=== PATIENT | female | born 1965 | race Caucasian/White ===

== ENCOUNTER 2024-03-15 06:06 | Observation (INO) ==
--- NOTE | 2024-01-26 15:16 | PAT Medication Instructions ---
Medication Instructions Date of Service January 26, 2024 Home Medications Medication Instructions Recorded meloxicam 15 mg tablet 15 mg PO QAM #30 tabs 01/21/24 cholecalciferol (vitamin D3) 100 mcg (4,000 unit) capsule 100 mcg PO Q2D epinephrine 0.3 mg/0.3 mL injection, auto-injector 0.3 mg IM Q4H PRN Hives lisinopril 20 mg tablet 20 mg PO QAM loratadine 10 mg tablet 10 mg PO QAM omeprazole 20 mg tablet,delayed release 20 mg PO QAM meloxicam 15 mg tablet 15 mg PO QAM Continue as directed epinephrine 0.3 mg/0.3 mL injection, auto-injector 0.3 mg IM Q4H PRN Hives (if needed) ASK your surgeon for instructions meloxicam 15 mg tablet 15 mg PO QAM DO NOT take the morning of surgery cholecalciferol (vitamin D3) 100 mcg (4,000 unit) capsule 100 mcg PO Q2D lisinopril 20 mg tablet 20 mg PO QAM loratadine 10 mg tablet 10 mg PO QAM Take morning of surgery With a small sip of water, OTHERWISE NOTHING TO EAT OR DRINK AFTER MIDNIGHT: omeprazole 20 mg tablet,delayed release 20 mg PO QAM Other Notes If you have any questions please call us at [phone] or [phone] or [phone] or [phone]
--- NOTE | 2024-02-06 14:07 | Anesthesiology Consultation ---
Date of Service February 06, 2024 Assessment & Plan (1) Encounter for pre-operative examination: - Infectious disease screening: Per assessment on 02/06/24: No known recent infectious disease contacts or current infectious disease symptoms. - Outpatient joint assessment: Pt currently scheduled for inpatient pathway. If surgeon requests review for outpatient joint pathway, patient is an acceptable candidate for outpatient joint program from anesthesia standpoint pending surgeon's office assessment that patient is motivated, has good support and completes [facility] Joint Program preop requirements. Chart Review Chart Review: Acceptable Risk for Surgery and Patient seen in Pre Admission Testing Teaching & Discussion Pre-Anesthesia Teaching/Discussion Notes: Instructed NPO after midnight before surgery,except medications with 15 cc of water. Medication instructions provided according to the PAT guidelines. History Surgery Operation Date: 03/15/24 07:00 Proposed Procedures p Left Total Knee Arthroplasty - Tonio Beach, Height/Weight Height: 5 ft 2.5 in Weight: 97.7 kg Allergies Allergy/AdvReac Type Severity Reaction Status Date / Time bee pollen Allergy Severe Anaphylaxis Verified 01/19/24 10:44 flavoxate AdvReac Intermediate Hives Verified 01/19/24 10:44 Medications Home Medications Medication Instructions Recorded Confirmed Last Taken cholecalciferol (vitamin D3) 100 100 mcg PO Q2D 01/19/24 01/19/24 Unknown mcg (4,000 unit) capsule epinephrine 0.3 mg/0.3 mL 0.3 mg IM Q4H PRN Hives 01/19/24 01/19/24 Unknown injection, auto-injector lisinopril 20 mg tablet 20 mg PO QAM 01/19/24 01/19/24 Unknown loratadine 10 mg tablet 10 mg PO QAM 01/19/24 01/19/24 Unknown omeprazole 20 mg tablet,delayed 20 mg PO QAM 01/19/24 01/19/24 Unknown release meloxicam 15 mg tablet 15 mg PO QAM #30 tabs 01/21/24 Unknown Past Medical History Medical History Acid reflux History of HPV infection "Negative" on most recent pap test HTN (hypertension) Hx of migraines Obesity Osteoarthritis Sleep apnea CPAP (compliant) Thyroid goiter Subtotal thyroidectomy (Small remaining thyroid portion (done so that thyroid supplementation not required postoperatively per patient) Exercise / Class Metabolic Activity II 4-5 Yardwork/Stairs/Walk up hill (one FS: No CP, no SOB) Past Family History Family History Other No family history of adverse response to anesthesia Past Surgical History Surgical History H/O arthroscopy of left knee 03/04/2021-Dr. Beach History of appendectomy History of arthroscopy of left shoulder History of cholecystectomy History of colonoscopy History of colposcopy r/t vaginal wall abnormal areas (HPV/abnormal paps) History of thyroidectomy, subtotal Small remaining thyroid portion (done so that thyroid supplementation not required postoperatively per patient) S/P right knee arthroscopy x2 S/P CLAIRE-BSO r/t bilateral chasidy ovarian cysts Past Anesthesia History No Hx of Anesthesia Complications and No Family Hx of Anesthesia Complications History of PONV No Hx of PONV and No Hx of Motion Sickness Social History Smoking Status: Never smoker Do You Dip or Chew Tobacco: No Hx Alcohol Use: No Hx Substance Use: No substance use type: does not use Review of Systems Rare palpitations. Patient denies chest pain, shortness of breath, dyspnea on exertion, fever, chills, cough, wheezing. Physical Exam Vital Signs BP 138/82 P 75 TEMP 98.2 SP02 97%RA RESP 16 Physical Full cervical extension range of motion. Full TMJ range of motion. TMD 3 finger breaths Mallampati Score II Dentition: intact Lungs: clear throughout to auscultation Cardiac: regular rate and rhythm, no murmurs noted Spine: normal Carotid arteries: negative bruit Extremities: no LE edema Lab Results Anesthesia Preop Results Results Anesthesia Widget: WBC 5.82 K/ul (4.8-10.8) 02/06/24 Hgb 12.2 g/dl (12.0-16.0) 02/06/24 Hct 37.3 % (37.0-47.0) 02/06/24 Plt 197 K/uL (130-400) 02/06/24 Na 141 mmol/L (136-145) 02/06/24 K 3.6 mmol/L (3.5-5.1) 02/06/24 Cl 106 mmol/L (98-107) 02/06/24 CO2 29 mmol/L (21-32) 02/06/24 BUN 32 mg/dl (6-23) H 02/06/24 Creat 0.94 mg/dl (0.6-1.2) 02/06/24 Glucose Level 83 mg/dl (70-99(Fasting)) 02/06/24 PT 10.5 Seconds (9.0-12.0) 02/06/24 PTT 26 Seconds (21-31) 02/06/24 INR 1.0 (0.9-1.1) 02/06/24 Blood Type B Positive 02/06/24 Antibody Screen NEGATIVE 02/06/24 Testing Electrocardiogram Date: 02/06/24 Findings: + NSR @ (71) Chest X-Ray Date: 02/06/24 FINDINGS: The lungs are clear. Cardiac silhouette is normal in size. No pleural effusions. No pneumothorax. Prior cholecystectomy. IMPRESSION: No acute process.
--- NOTE | 2024-03-14 09:21 | History & Physical Report ---
Date of Service March 14, 2024 Assessment & Plan (1) Osteoarthritis of left knee: We will proceed with a left total knee arthroplasty. Postoperatively she will be started on aspirin for DVT prophylaxis and kept overnight in the hospital for postop medical management. She plans to go to outpatient physical therapy at [facility] upon discharge. History of Present Illness Chief Complaint: Osteoarthritis of the left knee. Primary Care Provider: Jessa Butterfield DO Sena is a pleasant 58-year-old female who was initially dealing with a work- related injury to her left knee. I did a left knee arthroscopy and it showed some grade 2 and almost grade 3 chondral changes of the distal medial femoral condyle. Unfortunately, she has not done well postoperatively. I have been treating her conservatively. I have been really trying to go slow with this. We have tried lot of injections. Unfortunately, she continues to have pain. Repeat x-rays have shown worsening medial compartmental arthritis. After failing extensive conservative treatment, she has elected proceed with a left total knee arthroplasty. Allergies Allergy/AdvReac Type Severity Reaction Status Date / Time bee pollen Allergy Severe Anaphylaxis Verified 01/19/24 10:44 flavoxate AdvReac Intermediate Hives Verified 01/19/24 10:44 Home Medications Medication Instructions Recorded Confirmed Type cholecalciferol (vitamin D3) 100 100 mcg PO Q2D 01/19/24 01/19/24 History mcg (4,000 unit) capsule epinephrine 0.3 mg/0.3 mL 0.3 mg IM Q4H PRN Hives 01/19/24 01/19/24 History injection, auto-injector lisinopril 20 mg tablet 20 mg PO QAM 01/19/24 01/19/24 History loratadine 10 mg tablet 10 mg PO QAM 01/19/24 01/19/24 History omeprazole 20 mg tablet,delayed 20 mg PO QAM 01/19/24 01/19/24 History release meloxicam 15 mg tablet 15 mg PO QAM #30 tabs 01/21/24 Rx Past Med/Surg History Problem List Encounter for pre-operative examination Patella-femoral syndrome Tear of lateral meniscus of left knee Medical History Osteoarthritis Obesity Acid reflux Hx of migraines HTN (hypertension) Sleep apnea CPAP (compliant) History of HPV infection "Negative" on most recent pap test Thyroid goiter Subtotal thyroidectomy (Small remaining thyroid portion (done so that thyroid supplementation not required postoperatively per patient) Surgical History History of arthroscopy of left shoulder H/O arthroscopy of left knee 03/04/2021-Dr. Beach History of colposcopy r/t vaginal wall abnormal areas (HPV/abnormal paps) History of colonoscopy S/P CLAIRE-BSO r/t bilateral chasidy ovarian cysts History of cholecystectomy History of thyroidectomy, subtotal Small remaining thyroid portion (done so that thyroid supplementation not required postoperatively per patient) History of appendectomy S/P right knee arthroscopy x2 Family History Other No family history of adverse response to anesthesia Social History Smoking Status: Never smoker Second Hand Exposure: No; Do You Dip or Chew Tobacco: No; Tobacco Cessation Education Requested by Patient: No Hx Alcohol Use: No Hx Substance Use: No Preferred Language: [place] Communication Ability: Effective Clay Caster Required: No Beliefs That Will Affect Care: None Current Living Situation: Spouse Other Information That Helps Us Care for You: No Feels Safe at Home: Yes Safety Concerns: Feels Safe At This Time Assistive Devices: CPAP and Glasses Review of Systems All systems reviewed & are unremarkable except as noted in HPI & below. Physical Exam On physical examination left knee, she does have a varus deformity. Tenderness palpation of the distal medial femoral condyle and over the medial joint line.. Constitutional WD/WN, vitals as above Eyes PERRL, conjunctivae normal, anicteric sclerae ENMT external ear and nose normal, oropharynx normal Neck trachea midline, no thyromegaly Respiratory normal respiratory effort Cardiovascular RRR, no murmur, no edema Gastrointestinal (Abdomen) normal bowel sounds, soft, nontender, no hepatosplenomegaly Psychiatric A+Ox3, euthymic affect Results & Data Results & Data Laboratory Results . Diagnostic Findings X-rays of the left knee show advanced osteoarthritis with joint space narrowing, osteophyte formation, and [id number] articulation. PG Care Time/CCT Total # of Minutes Spent Total Time Spent with Patient: Total time spent is greater than 50% in coordination of care (as documented) at patient's floor/unit and/or counseling patient: Coding Level of Care Code None Diagnoses Osteoarthritis of left knee M17.12
[~2024-03-15 06:06] MED LIST: ROPIV 0.5% 246mg, Ketorolac 30mg, EPINEPHrine 0.5mg in NSS INFIL SCH
[2024-03-15] MEDS ORDERED: BUPIVACAINE 0.5 % 5 MG/1 ML PF 10ML VIAL ONE (06:27)
[2024-03-15] MEDS ORDERED: ROPIVACAINE 0.5% 5 MG/ML 30 ML VIAL ONE (06:27)
[2024-03-15] MEDS ORDERED: GLYCOPYRROLATE 0.2 MG/ML VIAL ONE (06:40)
[2024-03-15] MEDS ORDERED: PROPOFOL IV EMULSION 10 MG/ML 20 ML VIAL IV ONE (06:40)
[2024-03-15] MEDS ORDERED: KETAMINE HCL 10MG/ML SYR ONE (06:40)
[2024-03-15] MEDS ORDERED: ONDANSETRON INJ 2 MG/ML 2 ML VIAL ONE (06:40)
[2024-03-15] MEDS ORDERED: LIDOCAINE 2% 2 ML VIAL/AMP(20MG/ML) INFIL ONE (06:40)
[2024-03-15] MEDS ORDERED: MIDAZOLAM HCL 1 MG/ML 2ML VIAL ONE (06:40)
[2024-03-15] MEDS: LR 500ML BOLUS, THEN 15ML/HR IV SCH (07:11)
[2024-03-15] MEDS ORDERED: ATROPINE SULFATE 0.1 MG/ML 10ML SYR IV PRN (07:17)
[2024-03-15] MEDS ORDERED: ONDANSETRON INJ 2 MG/ML 2 ML VIAL IV PRN ×2 (07:17→13:34)
[2024-03-15] MEDS ORDERED: ePHEDrine sulfate 50 MG/ML AMP IV PRN (07:17)
[2024-03-15] MEDS: GABAPENTIN 600 MG DOSE PO SCH (07:43)
[2024-03-15] MEDS: FAMOTIDINE 20 MG TAB PO SCH (07:43)
[2024-03-15] MEDS: TRANEXAMIC ACID 1,000 MG **IV Pre-op IV SCH (07:43)
[2024-03-15] MEDS: ACETAMINOPHEN 500 MG TAB PO SCH ×2 (07:43→13:58)
[2024-03-15] MEDS: dexAMETHasone**PF** 10 MG/ML VIAL IV SCH (07:43)
[2024-03-15] MEDS: LR 60ML/HR IV SCH (07:48)
--- NOTE | 2024-03-15 07:51 | History & Physical Bridge Note ---
Date of Service March 15, 2024 History & Physical Bridge Note I have examined the patient, reviewed the History & Physical and in the interval since the performance of the History & Physical I have noted the following changes of clinical significance: no changes noted
[2024-03-15] MEDS: ceFAZolin 2000MG 2,000 MG/15 ML SYR IV SCH ×2 (08:00→16:33)
[2024-03-15] MEDS ORDERED: PHENYLEPHRINE 100MCG/ML 5ML SYR ONE (08:26)
[2024-03-15] MEDS: ROPIVACAINE 0.5% HCL/PF 246 MG, Ketorolac (*for OR use only*) 30 MG, EPINEPHrine 30MG/3... INFIL ONE (08:28)
[2024-03-15] MEDS: TRANEXAMIC ACID 1,000 MG **IV Intra-op IV SCH (09:12)
--- NOTE | 2024-03-15 09:14 | Operative Report ---
PG Post Operative Report Pre & Post Diagnosis Operation Date: 03/15/24 08:00 Pre-Op Diagnosis: Degenerative Joint Disease, Left Knee Post-Op Diagnosis: Degenerative Joint Disease, Left Knee I identified the patient and participated in the time-out.: Yes Procedure Operation Date: 03/15/24 08:00 Actual Procedures p Left Total Knee Arthroplasty(Left) - Tonio Beach DO Surgeon Tonio Beach DO [employer] Tonio Mobley PA-C Estimated Blood Loss 30 Findings Consistent with Post-Op Diagnosis Specimens Left femoral tibial bone Description of Procedure Implants used: I used a Sandra Persona total knee arthroplasty system with a size 8 narrow PS femur, D tibia, 28 oval patella, and a size 10 CPS polyethylene bearing. All components were cemented in place with Biomet cement. Sena arrived [facility] for the above procedure. She was seen in the preoperative holding area and the operative extremity was identified and signed. She was given a preoperative antibiotic, TXA, a spinal anesthetic and an adductor nerve block. She was taken back to the operating room and laid on the table in supine position. She was given basic sedation. The operative knee was then prepped and draped in sterile fashion. A timeout was done, and the patient and the operative extremity was properly identified. A midline incision was made directly over the patella. Dissection was taken down to the extensor mechanism. A subvastus arthrotomy was used. The medial retinaculum was released and the fat pad was mostly excised. The knee was flexed and the ACL, PCL, and meniscus were removed. A drill was sent down the center of the femoral canal followed by an intramedullary raoul. Off that raoul a distal femoral cutting block was placed. 9 mm was resected off the distal femur at 5 of valgus. A posterior referencing AP sizing guide was then placed on the distal femur. The femur measured to be a size 8. 2 drill holes were placed in 3 of external rotation. A 4-in-1 cutting block was then impacted into place. Anterior, posterior, and chamfer cuts were then made. The proximal tibia was then exposed. An external tibial alignment guide was placed. A tibial cut guide was then anchored in place and the proximal tibia was then resected. The posterior aspect of the knee was then opened up and any additional meniscus fragments and osteophytes were removed. The tibia measured to be a size D. The tibial plate was then placed in the appropriate rotation and the tibia was drilled and punched. Trial components were then placed. I used a size 10 CPS polyethylene insert. The knee was brought through a full range of motion and felt to be stable. The peg holes for the femoral component were then drilled. The patella was then everted and 9 mm was resected off the posterior aspect of the patella. The patella measured to be a size 28 oval. 3 peg holes were then drilled. A trial patella was placed. The knee was once again brought through a full range of motion and felt to be stable. Trial components were then removed. The surrounding soft tissues were injected with 100 cc of an orthopedic pain control cocktail. All components were then cemented into place with Biomet cement. The final polyethylene insert was then snapped into place. Once cement was dry the tourniquet was deflated. Hemostasis was obtained. A dilute betadyne lavage was then done for 3 minutes. The joint was then irrigated with normal saline solution. The subvastus arthrotomy was then closed with #1 Vicryl suture. The skin was closed with 2-0 Vicryl, 3-0V lock suture, and joseph. A soft compressive dressing was placed. She was then transferred to a hospital bed and taken to the postanesthesia care unit in stable condition. She tolerated the procedure well. Tonio Mobley PA-C, was present for the entire procedure. He was critical for patient positioning, prepping, draping, retraction exposure, wound closure and application of sterile dressing. I attest to the content of the Intraoperative Record and any orders documented therein. Any exceptions are noted below.
--- NOTE | 2024-03-15 09:54 | XRay Report ---
TWO VIEWS LEFT KNEE CLINICAL HISTORY: Postoperative examination. FINDINGS: AP and crosstable lateral portable views of the left knee are obtained. A left knee arthrop lasty is in near anatomic alignment. There has been undersurface remodeling of the patella. No acute fracture is seen. There are expected postoperative changes around the knee including skin clips, soft tissue edema, and subcutaneous gas. IMPRESSION: Expected postoperative changes status post left knee arthroplasty. No acute fracture is s een. ACT 112: Negative or not required by law. Electronically signed by: Zachary Franklin M.D. 03/15/2024 9:53 AM
[2024-03-15] MEDS: fentaNYL citrate PF 100 MCG/2 ML VIAL IV PRN (12:05)
--- OUTSIDE RECORDS SUMMARY | 2024-03-15 12:41 | External Medical Summary | Summary of Care ---
Author Name Unknown Organization [facility] Ambulatory Address [address] [place] [address] Phone Care Team Providers Care Rag Boiler Name Role Phone Provider, Abstract MD Unavailable UnavailTonio Amado MD Unavailable [place] Mac MD Unavailable Cesar Posada MD Unavailable [phone] Lea Yao MD Unavailable [phone] Jessa Butterfield DO Primary Care Provider [phone] Trina Sage MD Unavailable [phone] Remington Perez DO Unavailable [phone] Artem Lindquist MD Unavailable [phone] Quinten Long MD Unavailable [phone] Lizbeth Mirza MD Unavailable [phone] Provider, Generic External Data Unavailable Unavailable Ade Hollins PA-C Unavailable [phone] Blanca Campbell MD Unavailable [phone] Katie Palmer PA-C Unavailable [phone] Sonny Sanchez MD Unavailable [phone] Adolfo Sandoval DO Unavailable Source Comments This information has been disclosed to you from records protected by federal confidentiality rules (42 CFR part 2). The federal rules prohibit you from making any further disclosure of information inthis record that identifies a patient as having or having had a substance use disorder either directly, by reference to publicly available information, or through verification of such identification by another person unless further disclosure is expressly permitted by the written consent of the individual whose information is being disclosed or as otherwise permitted by 42 CFR part 2. A general authorization for the release of medical or other information is NOT sufficient for this purpose (seesection 2.31). The federal rules restrict any use of the information to investigate or prosecute with regard to a crime any patient with a substance use disorder, except as provided at sections 2.12(c)(5) and 2.65.[facility] Amb[facility] Reason for Visit * Reason Comments Weight Check Blood Pressure Encounter Details Date Type Department Care Team ([facility] st Contact Info) Description 03/11/2024 3:45 PM EDT Nurse Visit [address] [phone] Cutter Hot Knife: Linda Tellez Weight Check; Blood Pressure Allergies Active Allergy Reactions Criticality Noted Date Comments Flavoxate Hcl Medium 02/08/2001 urispas-hives Venom-Honey Bee Hives Medium 09/09/2018 documented as of this encounter (statuses as of 03/11/2024) Medications Medication Sig Dispensed Refills Start Date End Date Status EPINEPHrine 0.15 mg/0.3 mL injection Inject 0.15 mg one time as needed for allergic Reaction Active meloxicam (MOBIC) 15 mg oral tablet Take 15 mg by mouth daily Active medical supply, miscellaneous (MISCELLANEOUS MEDICAL SUPPLY MISC) 1 each by miscellaneous route nightly CPAP-- Use as directed Active omeprazole (PRILOSEC) 20 mg oral delayed-release capsule Take 1 capsule by mouth once daily 90 capsule 1 01/24/2024 Active lisinopriL 20 mg oral tabletIndications:H ypertension, unspecified type Take 1 tablet by mouth once daily 90 tablet 1 01/30/2024 Active phentermine (ADIPEX-P) 37.5 mg oral capsule Take 1 capsule by mouth daily Max Daily Amount: 37.5 mg 30 capsule 02/08/2024 Active documented as of this encounter (statuses as of 03/11/2024) Active Problems Problem Noted Date Diagnosed Date Meningioma 11/27/2023 Osteoporosis 02/23/2005 Postmenopausal atrophic vaginitis 02/23/2005 Vaginal dysplasia 02/23/2005 documented as of this encounter (statuses as of 03/11/2024) Resolved Problems Problem Noted Date Diagnosed Date Resolved Date Encounter for postoperative wound check 11/20/2017 12/15/2020 documented as of this encounter (statuses as of 03/11/2024) Immunizations Name Administration Dates Next Due Td 02/14/2019 Tdap 11/19/2008 documented as of this encounter Social History Tobacco Use Types Packs/Day Years Used Date Smoking Tobacco: Never Smokeless Tobacco: Never Alcohol Use Standard Drinks/Week Comments No 0 (1 standard drink = 0.6 oz pur e alcohol) Depression Answer Date Recorded PHQ-2 Screening Result Negative PHQ Result Negative 06/24/2021 Sex and Gender Information Value Date Recorded Sex Assigned at Not on file Gender Identity Not on file Sexual Orientation Not on file documented as of this encounter Last Filed Vital Signs Vital Sign Reading Time Taken Comments Blood Pressure 120/68 03/11/2024 3:35 PM EDT Pulse - - Temperature - - Respiratory Rate - - Oxygen Saturation - - Inhaled Oxygen Concentration - - Weight 93.5 kg (206 lb 3.2 oz) 03/11/2024 3:35 P M EDT Height - - Body Mass Index 37.11 09/04/2023 2:38 PM EDT documented in this encounter Plan of Treatment Health Maintenance Due Date Last Done Comments Annual Exam 1963 Cologuard 1963 Fecal Occult Blood Testing 1965 HIV Screening 1978 Billable Depression Screen 06/24/2022 06/24/2021 Depression Screening 05/22/2023 Creatinine Serum 09/04/2024 09/05/2023, 01/2023, 02/21/2022, Additional history exists Lipid Profile 09/04/2024 09/05/2023 Potassium 09/04/2024 09/05/2023, 01/2023, 02/21/2022, Additional history exists Colposcopy 12/13/2024 12/14/2023, 0 09/2023, 06/02/2022, Additional history exists Advance Directives 02/07/2025 05/29/2018 Postponed from 05/29/2023 (Recommended) COVID-19 Vaccine ( season) 2025 Postponed from 01/21/2024 (Recommended Yet Declined) Flu Vaccine (#1) 02/07/2025 Postponed f rom 02/20/2024 (Recommended Yet Declined) Shingles Vaccine (Recombinant) (1 of 2) 02/07/2025 Postponed from 2013 (Recommended) Mammogram 06/02/2025 06/02/2023, 03/22, 06/26/2017, Additional history exists Colonoscopy 10/06/2026 10/06/2021, 08/05/2014 Colorectal Cancer Screening 10/06/2026 Sigmoidoscopy 10/06/2026 10/06/2021 Pap Smear 12/13/2026 12/14/2023, 0 09/2023, 12/15/2022, Additional history exists Cervical Cancer Screening 12/13/2028 HPV/Cotest 12/13/2028 12/14/2023, 0 09/2023, 12/15/2022, Additional history exists DTaP/Tdap/Td Vaccine (3 - Td or Tdap) 02/14/2029 02/14/2019, 11/19/2008 Hepatitis C Screen Completed 06/30/2021, 1 (Previously completed) Full Body Skin Exam Discontinued Hepatitis B Vaccine Aged Out No longe r eligible based on patient's age to complete this topic Pneumococcal Vaccine Aged Out No long er eligible based on patient's age to complete this topic documented as of this encounter Visit Diagnoses Diagnosis Primary hypertension- Primary Unspecified essential hypertension documented in this encounter Care Teams Rag Boiler Relationship Specialty Start Date End Date Jessa Butterfield DO [address] [place] [phone] PCP - General Family Medicine 05/28/18 Provider, MD KAUR Norris PROVIDER 11/15/17 Tonio Marie MD [address] [place] [phone] Gynocologic Oncology 11/16/17 rCaig-Marietta Lee MD [address] [place] [phone] agriculture laboratory technician 11/20/17 Cesar Posada MD [address] [place] [phone] Gynocologic Oncology 02/01/18 Lea Yao MD [address] [place] [phone] agriculture laboratory technician 02/12/18 Trina Sage MD [address] [place] [address] [address] [place] [address] Neurosurgery 09/26/18 Remington Perez DO [address] [place] [phone] agriculture laboratory technician 11/15/18 Artem Lindquist MD [address] [place] [phone] agriculture laboratory technician 06/05/19 Quinten Long MD [address] [place] [phone] agriculture laboratory technician 07/19/19 Lizbeth Mirza MD [address] [facility] [address] [place] [address] agriculture laboratory technician 12/02/19 Provider, Generic External Data 06/04/20 Ade Hollins PA-C [address] [place] [address] [phone] [place] [address] ENT-Otolaryngology 12/28/20 Blanca Campbell MD [address] [place] [address] [address] [place] [address] ENT-Otolaryngology 01/26/21 Katie Palmer PA-C [address] [phone] Gastroenterology 06/29/21 Sonny Sanchez MD [address] [phone] Gastroenterology 10/06/21 Adolfo Sandoval DO [address] [phone] Pulmonology 10/03/23 documented as of this encounter
--- OUTSIDE RECORDS SUMMARY | 2024-03-15 12:41 | External Medical Summary ---
Author Name Unknown Address Unknown Organization : Laboratory Report Ordering Provider Test Date Status TAM DOYLE 02/05/2024 09:00:00 Final Observation Date Value Abnormality Reference (Units ) Status EMPLOYER 02/05/2024 09:00:00 Pending Final Lead,Blood, OSHA 02/08/2024 16:00 1.1 Final Reference range: SEE COMMENT Unit: mcg/dL Industrial Exposure: <40.0 mcg/dL mcg/dL = mcg/100g for OSHA (Refer to current governmental regulations for exposure criteria.) This test was developed and its analytical performance characteristics have been determined by [employer]. It has not been cleared or approved by the FDA. This assay has been validated pursuant to the CLIA regulations and is used for clinical purposes. Analysis was performed by Inductively Coupled Plasma Mass Spectrometry (ICPMS) Test performed at [facility] [address] Director: ALEC ESCALANTE MD VENOUS/CAPILLARY 02/05/2024 09:00:00 Pending Final RACE 02/05/2024 09:00:00 Pending Final PATIENT ZIP CODE 02/05/2024 09:00:[address] ADDRESS 02/05/2024 09:00:00 Pending Final PATIENT STATE 02/05/2024 09:00:00 Pending Final PATIENT PHONE NUMBER 02/05/2024 09:00:00 Pending Final PATIENT OCCUPATION 02/05/2024 09:00:00 Pending Final PATIENT COUNTY 02/05/2024 09:00:00 Pending Final PATIENT CITY 02/05/2024 09:00:00 Pending Final ETHNICITY 02/05/2024 09:00:00 Pending Final EMPLOYMENT STATUS 02/05/2024 09:00:00 Pending Final EMPLOYER ZIP 02/05/2024 09:00:00 Pending Final EMPLOYER STATE 02/05/2024 09:00:00 Pending Final EMPLOYER PHONE 02/05/2024 09:00:00 Pending Final EMPLOYER CITY 02/05/2024 09:00:00 Pending Final EMPLOYER ADDRESS 02/05/2024 09:00:00 Pending Final Performing Location
--- OUTSIDE RECORDS SUMMARY | 2024-03-15 12:41 | External Medical Summary | Summary of Care ---
Author Name Unknown Organization [facility] Ambulatory Address [address] [place] [address] Phone Care Team Providers Care Automotive Sales Associate Name Role Phone Provider, Abstract MD Unavailable UnavailTonio Amado MD Unavailable Marietta Mac MD Unavailable Cesar Posada MD Unavailable [phone] Lea Yao MD Unavailable [phone] Jessa Butterfield DO Primary Care Provider Trina Sage MD Unavailable [phone] Remington Perez DO Unavailable [phone] Artem Lindquist MD Unavailable [phone] Quinten Long MD Unavailable [phone] Lizbeth Mirza MD Unavailable [phone] Provider, Generic External Data Unavailable Unavailable Ade Hollins PA-C Unavailable [phone] Blanca Campbell MD Unavailable [phone] Katie Palmer PA-C Unavailable [phone] Sonny Sanchez MD Unavailable [phone] Adolfo Sandoval DO Unavailable Source Comments [...] except as provided at sections 2.12(c)(5) and 2.65.[facility] Ambulatory Reason for Visit * Reason Comments Follow-Up Encounter Details Date Type Department Care Team ([facility] st Contact Info) Description 02/08/2024 7:20 AM EDT Office Visit [address] [address] Chemical Engineering Teacher: Linda Tellez Carrie A, MD [address] [place] [id number] Primary hypertension (Primary Dx); Class 3 severe obesity with serious comorbidity and body mass index (BMI) of 40.0 to 44.9 in adult, unspecified obesity type (HCC); Obstructive sleep apnea syndrome Allergies Active Allergy Reactions Criticality Noted Date Comments Flavoxate Hcl Medium 02/08/2001 urispas-hives Venom-Honey Bee Hives Medium 09/09/2018 documented as of this encounter (statuses as of 02/19/2024) Medications Medication Sig Dispensed Refills Start Date [...] by mouth once daily 90 capsule 1 4 Active lisinopriL 20 mg oral tabletIndications: Hypertension, unspecified type Take 1 tablet by mouth once daily 90 tablet 1 4 Active phentermine (ADIPEX-P) 37.5 mg oral capsule Take 1 capsule by mouth daily Max Daily Amount: 37.5 mg 30 capsule 4 Active phentermine 15 mg oral capsule Take 1 capsule by mouth every morning Reassess monthly Max Daily Amount: 15 mg 30 capsule 4 02/08/20 24 Discontinued (Patient reported not taking) predniSONE (DELTASONE) 20 mg oral tablet Take 3 tabs for 3 days, 2 tabs for 3 days, 1 tab for 3 days, 1/2 tab for 3 days 4 02/08/20 24 Discontinued (Patient reported not taking) phentermine (ADIPEX-P) 37.5 mg oral capsule Take 1 capsule by mouth daily Max Daily Amount: 37.5 mg 30 capsule 4 02/08/20 24 Discontinued (Reorder) documented as of this encounter (statuses as of 02/19/2024) Active Problems Problem Noted Date Diagnosed Date Meningioma 11/27/2023 Osteoporosis 02/23/2005 Postmenopausal atrophic vaginitis 02/23/2005 Vaginal dysplasia 02/23/2005 documented as of this encounter (statuses as of 02/19/2024) Resolved Problems Problem Noted Date Diagnosed Date Resolved Date Encounter for postoperative wound check 11/20/2017 12/15/2020 documented as of this encounter (statuses as of 02/19/2024) Immunizations Name Administration Dates Next Due Td 02/14/2019 Tdap 11/19/2008 documented as of this encounter Social History Tobacco Use Types Packs/Day Years Used Date Smoking Tobacco: Never Smokeless Tobacco: Never Alcohol Use Standard Drinks/Week Comments No 0 (1 standard drink = 0.6 oz pur e alcohol) Depression Answer Date Recorded PHQ-2 Screening Result Negative 2 PHQ Result Negative 06/24/2021 Sex and Gender Information Value Date Recorded Sex Assigned at Not on file Gender Identity Not on file Sexual Orientation Not on file documented as of this encounter Last Filed Vital Signs Vital Sign Reading Time Taken Comments Blood Pressure 132/78 02/08/2024 7:20 AM EDT Pulse 78 02/08/2024 7:20 AM EDT Temperature 36.7 C (98 F) 02/08/2024 7:20 AM EDT Respiratory Rate 16 02/08/2024 7:20 AM EDT Oxygen Saturation 98% 02/08/2024 7:20 AM EDT Inhaled Oxygen Concentration - - Weight 96.7 kg (213 lb 3.2 oz) 02/08/2024 7:20 A M EDT Height - - Body Mass Index 38.37 09/04/2023 2:38 PM EDT documented in this encounter Progress Notes * Cata Davis MD - 02/08/2024 7:20 AM EDT Subjective CC: Chief Complaint Patient presents with Follow-Up HPI: Sena is a 58 year old female that presents for CHRONIC CONDITIONS FOLLOW-UP obstructive sleep apnea: using cpap 7 hours nightly. Feeling rested when wakes up in morning. No problems with mask/set-up.using nasal canula style mask. Htn: no lightheaded or dizzy. No cp/palp H/o subtotal thyroidectomy for MNG. Has thyroid remnant and does not need thyroid replacement. Lab Results Component Value Date TSH 1.84 09/05/2023 Obesity: Started on phentermine in November. Went to [facility] and did the program: drank the water, the protein drinks, and followed the diet.No significant weight loss. Has been on multiple diets through the years. Right now eating chicken/fish, lots of veggies/fruits, drinking lots of water. Having a knee replacement on left next month. Rosina Montgomery, asked her to lose 20 pounds beforesurgery. Taking phentermine. Wt Readings from Last 7 Encounters: 02/08/24 213 lb 3.2 oz (96.7 kg) 01/09/24 217 lb 6.4 oz (98.6 kg) 12/14/23 218 lb 9.6 oz (99.2 kg) 12/12/23 220 lb (99.8 kg) 11/27/23 227 lb 6.4 oz (103.1 kg) 09/04/23 226 lb (102.5 kg) 05/26/23 226 lb 12.8 oz (102.9 kg) Medication list reviewed and updated. Objective BP 132/78 | Pulse 78 | Temp 98 F (36.7 C) (Tympanic) | Resp 16 | Wt 213 lb 3.2 oz (96.7 kg) | SpO2 98% | BMI 38.37 kg/m Physical Exam Vitals and nursing note reviewed. HENT: Head: Normocephalic and atraumatic. Eyes: Extraocular Movements: Extraocular movements intact. Conjunctiva/sclera: Conjunctivae normal. Pupils: Pupils are equal, round, and reactive to light. Cardiovascular: Rate and Rhythm: Normal rate and regular rhythm. Heart sounds: Normal heart sounds. Pulmonary: Effort: Pulmonary effort is normal. Breath sounds: Normal breath sounds. Musculoskeletal: Right lower leg: No edema. Left lower leg: No edema. Skin: General: Skin is warm and dry. Neurological: Mental Status: She is alert and oriented to person, place, and time. Assessment/Plan 1. Primary hypertension Controlled with current management, continue same 2. Class 3 severe obesity with serious comorbidity and body mass index (BMI) of 40.0 to 44.9 in adult, unspecified obesity type (HCC) Continue phentermine. Doing well with this. 3. Obstructive sleep apnea syndrome Controlled with CPAP, continue same Outpatient Medications Marked as Taking for the 02/08/24 encounter (Office Visit) with Nathalia Davis MD Medication Sig Dispense Refill EPINEPHrine 0.15 mg/0.3 mL injection Inject 0.15 mg one time as needed for allergic Reaction lisinopriL 20 mg oral tablet Take 1 tablet by mouth once daily 90 tablet 1 medical supply, miscellaneous (MISCELLANEOUS MEDICAL SUPPLY MISC) 1 each by miscellaneous route nightly CPAP-- Use as directed meloxicam (MOBIC) 15 mg oral tablet Take 15 mg by mouth daily omeprazole (PRILOSEC) 20 mg oral delayed-release capsule Take 1 capsule by mouth once daily 90 capsule 1 phentermine (ADIPEX-P) 37.5 mg oral capsule Take 1 capsule by mouth daily Max Daily Amount: 37.5 mg30 capsule 0 Return in about 4 months (around 06/09/2024) for chronic conditions follow-up. documented in this encounter Nursing Notes * Fifi Du LPN - 02/08/2024 7:20 AM EDT Pt is here for folow up on CPAP and phentermine. documented in this encounter Plan of Treatment Health Maintenance Due Date Last Done Comments Annual Exam 1963 Cologuard 1963 Fecal Occult Blood Testing 1963 HIV Screening 1978 Billable Depression Screen 06/24/2022 06/24/2021 Depression Screening 05/22/2023 Creatinine Serum 09/04/2024 09/05/2023, 01/2023, 02/21/2022, Additional history exists Lipid Profile 09/04/2024 09/05/2023 Potassium 09/04/2024 09/05/2023, 0 01/2023, 02/21/2022, Additional history exists Colposcopy 12/13/2024 [...] Diagnosis Primary hypertension- Primary Unspecified essential hypertension Class 3 severe obesity with serious comorbidity and body mass index (BMI) of 40.0 to 44.9 in adult, unspecified obesity type (HCC) Obstructive sleep apnea syndrome Obstructive sleep apnea (adult) (pediatric) documented in this encounter Care Teams Automotive Sales Associate Relationship Specialty Start Date End Date Jessa Butterfield DO [address] [place] [phone] PCP - General Family Medicine 05/28/18 Provider, MD KAUR Norris PROVIDER 11/15/17 Tonio Marie MD [address] [place] [address] Gynocologic Oncology 11/16/17 Marietta Mac MD [address] [place] [address] [address] [place] [address] inspector subassemblies 11/20/17 Cesar Posada MD [address] [facility] [address] [place] [address] Gynocologic Oncology 02/01/18 Lea Yao MD [address] [facility] [address] [place] [address] inspector subassemblies 02/12/18 Trina Sage MD [address] [place] [address] Neurosurgery 09/26/18 Remington Perez DO [address] [place] [address] [address] [place] [address] inspector subassemblies 11/15/18 Artem Lindquist MD [address] [place] [address] [address] [facility] [place] [address] inspector subassemblies 06/05/19 Quinten Long MD [address] [place] [address] [address] [place] [phone] inspector subassemblies 07/19/19 Lizbeth Mirza MD [address] [place] [address] [address] [place] [address] inspector subassemblies 12/02/19 Provider, Generic External Data 06/04/20 Ade Hollins PA-C [address] [place] [address] [address] [place] [phone] ENT-Otolaryngology 12/28/20 Blanca Campbell MD [address] [place] [address] [address] [place] [address] ENT-Otolaryngology 01/26/21 Katie Palmer PA-C [address] [address] Gastroenterology 06/29/21 Sonny Sanchez MD [address] [address] Gastroenterology 10/06/21 Adolfo Sandoval DO [address] [address] Pulmonology 10/03/23 documented as of this encounter"
[2024-03-15] MEDS ORDERED: HYDROmorphone INJ 0.5 MG/0.5 ML SYR IV PRN (13:34)
[2024-03-15] MEDS ORDERED: bisacodyL 10 MG SUPP PR PRN (13:34)
[2024-03-15] MEDS ORDERED: MAGNESIUM HYDROXIDE SUSP 30 ML UDC PO PRN (13:34)
[2024-03-15] MEDS ORDERED: NALOXONE HCL 0.4 MG/1 ML VIAL/CARP IV PRN (13:34)
[2024-03-15] MEDS ORDERED: METOCLOPRAMIDE HCL INJ 5 MG/ML 2 ML VIAL IV PRN (13:34)
[2024-03-15] MEDS: ceFAZolin 2,000 MG/15 ML IV PUSH IV ONE (13:46)
[2024-03-15] MEDS: FAMOTIDINE 20 MG TAB ONE (13:46)
[2024-03-15] MEDS: dexAMETHasone**PF** 10 MG/ML VIAL ONE (13:46)
[2024-03-15] MEDS: ACETAMINOPHEN 500 MG TAB ONE (13:46)
[2024-03-15] MEDS: ORTHO JOINT ANESTHETIC ONE (13:46)
[2024-03-15] MEDS: GABAPENTIN 300 MG CAP ONE (13:47)
[2024-03-15] MEDS: TRANEXAMIC ACID / 0.7% NACL 1000MG/100ML BAG IV ONE (13:47)
[2024-03-15] MEDS ORDERED: EPINEPHrine INJ 1 MG/ML AMP IM PRN (13:51)
[2024-03-15] MEDS: KETOROLAC 30 MG/ML VIAL IV SCH (13:59)
[2024-03-15] MEDS: oxyCODONE HCL IR 5 MG TAB (IMMEDIATE RELEASE) PO PRN (13:59)
--- NOTE | 2024-03-15 14:21 | Anesthesiology Progress Note ---
Date of Service March 15, 2024 Anesthesia Post Procedure Vital Signs Vital Signs: Temp Pulse Pulse Pulse Resp BP BP 03/15/24 13:53 36.5 C 88 16 96/60 L 03/15/24 13:25 36.4 C L 84 16 103/61 03/15/24 12:35 36.4 C L 92 H 20 122/70 03/15/24 12:05 84 18 124/62 03/15/24 11:35 84 18 116/61 03/15/24 11:20 73 17 123/66 03/15/24 11:05 77 17 123/66 03/15/24 10:50 81 17 115/59 L 03/15/24 10:35 73 17 117/62 03/15/24 10:25 36.4 C L 79 17 108/57 L 03/15/24 10:15 78 16 118/60 03/15/24 10:05 78 16 113/55 L 03/15/24 09:55 75 16 115/59 L 03/15/24 09:45 77 18 109/52 L 03/15/24 09:36 36.9 C 83 20 115/53 L 03/15/24 06:58 36.9 C 84 20 131/59 L Pulse Ox O2 Del Method O2 Flow Rate 03/15/24 13:53 93 Room Air 03/15/24 13:25 93 Room Air 03/15/24 12:35 95 Nasal Cannula 3 03/15/24 12:05 94 Nasal Cannula 3 03/15/24 11:35 98 Nasal Cannula 3 03/15/24 11:20 94 Nasal Cannula 3 03/15/24 11:05 94 Nasal Cannula 3 03/15/24 10:50 94 Room Air 03/15/24 10:35 94 Room Air 03/15/24 10:25 99 Room Air 03/15/24 10:15 94 Room Air 03/15/24 10:05 94 Room Air 03/15/24 09:55 100 Oxymask 5 03/15/24 09:45 100 Oxymask 5 03/15/24 09:36 97 Oxymask 5 03/15/24 06:58 97 Room Air Pain Intensity Left Knee: Pain Intensity: 3 Notes Mental Status: alert / awake / arousable Patient Amnestic to Procedure: Yes Nausea / Vomiting: adequately controlled Pain: adequately controlled Airway Patency, RR, SpO2: stable & adequate BP & HR: stable & adequate Hydration State: stable & adequate Neuraxial Anesthesia: was administered and sensory block is resolving Anesthetic Complications: no major complications apparent
[2024-03-15] MEDS: ASPIRIN 81 MG ECTAB PO SCH (21:06)
[2024-03-15] MEDS: DOCUSATE SODIUM 100 MG CAP PO SCH (21:06)
[2024-03-15] MEDS: SENNA 8.6 MG TAB PO SCH (21:06)
[2024-03-16 02:50] VITALS: RESP 16; O2SAT 96
--- NOTE | 2024-03-16 06:23 | Orthopedic Progress Note ---
Date of Service March 16, 2024 Assessment & Plan (1) Status post left knee replacement: Overall she is doing very well. She is not having much pain in the left knee. She will be seen by physical therapy today for ambulation and range of motion exercises. The nursing staff can change her dressing after physical therapy. She is on aspirin for DVT prophylaxis. She can be discharged to home later today. She will follow-up with orthopedics in 2 weeks. David Shetty was seen and examined at bedside this morning. Overall she is doing fairly well. She is not having much pain in the left knee. She has been up and ambulating to the bathroom. She has no complaints.. Review of Systems All systems reviewed & are unremarkable except as noted in HPI & below. Physical Exam On physical exam the left knee, the dressing is clean and dry. Her leg is out full extension. She has active dorsiflexion plantarflexion of her left ankle.. Results & Data Results & Data Laboratory Results . Diagnostic Findings Postoperative x-rays of the left knee show the prosthesis to be in anatomic alignment without any evidence of fracture, dislocation, or loosening.. PG Care Time/CCT Total # of Minutes Spent Total Time Spent with Patient: Total time spent is greater than 50% in coordination of care (as documented) at patient's floor/unit and/or counseling patient: Coding Level of Care Code 47126 Post Operative Follow-Up Diagnoses Status post left knee replacement Z96.652
--- NOTE | 2024-03-16 06:24 | Discharge Summary ---
Date of Service March 16, 2024 Admission HPI (Per Admitting) Sena is a pleasant 58-year-old female who was initially dealing with a work- related injury to her left knee. I did a left knee arthroscopy and it showed some grade 2 and almost grade 3 chondral changes of the distal medial femoral condyle. Unfortunately, she has not done well postoperatively. I have been treating her conservatively. I have been really trying to go slow with this. We have tried lot of injections. Unfortunately, she continues to have pain. Repeat x-rays have shown worsening medial compartmental arthritis. After failing extensive conservative treatment, she has elected proceed with a left total knee arthroplasty. Admission Exam (Per Admitting) On physical examination left knee, she does have a varus deformity. Tenderness palpation of the distal medial femoral condyle and over the medial joint line.. Principal Diagnosis Same as "Discharge Diagnosis" noted below under Discharge Instructions. Discharge Exam On physical exam the left knee, the dressing is clean and dry. Her leg is out full extension. She has active dorsiflexion plantarflexion of her left ankle.. Discharge Data Procedures Performed Operation Date: 03/15/24 08:00 Actual Procedures p Left Total Knee Arthroplasty(Left) - Tonio Beach DO Ordered Studies 03/15/24 05:00 US - OR guided needle placemen Routine Hospital Course (1) Status post left knee replacement: On March 15, 2024 Sena arrived at [facility] and underwent a left knee replacement without complication. She had a spinal anesthetic. Postoperatively she was started on aspirin for DVT prophylaxis and transferred to the general orthopedic floors. Her hospital course was uneventful. On postop day #1, her vital signs were stable and her pain was well-controlled. She was able to participate well with physical therapy doing ambulation and range of motion exercises. She was then discharged to home. She will follow-up orthopedics in 2 weeks. PG Care Time/CCT Total # of Minutes Spent Total Time Spent with Patient: Total time spent is greater than 50% in coordination of care (as documented) at patient's floor/unit and/or counseling patient: Discharge Plan Discharge Items Patient Disposition: Home - Self-Care Reason For Visit: Degenerative Joint Disease, Left Knee Discharge Diagnosis: Left knee replacement Activity: Per Instructions section Non-emergency contact: Surgeon Call non-emergency contact if: your wound has increased redness and your wound has increased drainage Follow-up/Referrals: Jessa Butterfield DO [Primary Care Provider] - Diet: Regular Addtl Attending Provider Instructions: Activity and Therapy Recommendations: * If you are using [facility] then therapy will be provided at your home until they feel you have accomplished all of your goals. * If you are using [facility] then Physical Therapy will be provided until they feel you are ready to start Outpatient Physical Therapy. * If you are not using home therapy then Outpatient Physical Therapy should start about 3-5 days from your day of surgery. Therapy will last about 6-10 weeks * It is important not to put a pillow under your knee when you are relaxing or sleeping. It is just as important to make sure you are getting your knee perfectly straight as it is to regain your knee bend. * You were shown a series of exercises in the hospital. Do these exercises three times each day including the exercises you were shown in physical therapy. * Get up and walk several times each day. For the first four weeks, try not to stand or walk for more than one hour at a time. If you do stand or walk for more than one hour, you will not hurt anything, but your leg will likely swell. * As you feel comfortable, you may change from the walker or crutches to a cane and then to independent walking. Medications: * Narcotic You will likely be sent home from the hospital with a prescription for the narcotic pain medication that worked best throughout your stay. * Cefadroxil -take the antibiotic twice a day for 10 days to help prevent infection. * Aspirin Most patients will be required to take Aspirin 81mg twice a day for 6 weeks after surgery. This is obtained [id number] and a prescription is not necessary. * Other medications may be prescribed for specific circumstances. If you have any questions, please call the office at . * Resume previous home medications unless otherwise instructed TEDs/Elastic Stockings: The white elastic stockings help limit swelling and prevent blood clots from forming in your legs.~ The more you wear them, the more they work. Wear them for six weeks. Dressing Care: The dressing can be changed after physical therapy on postop day #1. Daily dry dressing changes for a few days, especially if the incision is still draining some. If the incision is not draining then you may leave the joseph open to air. If there is a little bit of drainage or if the joseph are getting stuck on your clothing then cover the incision with a dry dressing. The joseph will be removed at your 2 week follow-up appointment. Showering: You may shower 5 days from the day of surgery as long as the incision is no longer draining. You may shower with the joseph exposed. Let soapy water run over the joseph and pat them dry. Do not scrub or soak the incision. Diet: You may resume your previous diet. Things To Watch For: * Drainage from the incision site that occurs more than one week after your surgery. * Increased redness at the incision site. * Fever above 102 degrees Fahrenheit. * Unusual chest pain or shortness of breath. * Call [facility] at with any of the above problems Follow-Up Visit: Follow-up with Dr. Beach's PA (Tonio Mobley) 2-3 weeks after your day of surgery. He will remove your joseph and answer any questions. If you have any additional questions or concerns, Dr Beach is usually in the o ffice at the same time and will be available An appointment was probably scheduled when you signed-up for surgery in the office. If you have any questions call Office Instructions: More detailed instructions as well as Frequently Asked Questions were provided in a folder by our office when you signed-up for surgery. Please review these instructions when you get home. If you have any further questions or concerns, please feel free to call the office at [phone] Pending Studies at Discharge: No Stand-Alone Forms: [facility], Smoking Cessation Medications and DC Order Prescriptions: New oxycodone 5 mg Tablet 5 mg PO Q4H PRN (Reason: pain) Qty: 30 0RF cefadroxil 500 mg capsule 500 mg PO BID 10 Days Qty: 20 0RF aspirin 81 mg Tablet,Delayed Release (Dr/Ec) 81 mg PO BID 42 Days Qty: 0 0RF Continued meloxicam 15 mg tablet 15 mg PO QAM Qty: 30 2RF lisinopril 20 mg Tablet 20 mg PO QAM epinephrine [Epi E-Z Pen] 0.3 mg/0.3 mL Auto-Injector 0.3 mg IM Q4H PRN (Reason: Hives) loratadine 10 mg Tablet 10 mg PO QAM omeprazole 20 mg Tablet,Delayed Release (Dr/Ec) 20 mg PO QAM Vitamin D3 100 mcg (4,000 unit) Capsule 100 mcg PO Q2D Discharge Orders: Discharge Order (Routine); Ordered 03/16/24 Ordered By: Tonio Beach Admission Data Admit Date/Time: 03/15/24 09:36 Attending Provider: Tonio Beach Admit Provider: Tonio Beach Primary Care Provider: Jessa Butterfield
[2024-03-16 07:21] VITALS: TEMP 97.9
[2024-03-16] MEDS: dexAMETHasone 4 MG TAB PO SCH (07:55)
[2024-03-16] MEDS: lisinopril 20 MG TAB PO SCH (08:00)
[2024-03-16] MEDS: MULTIVITAMIN TAB PO SCH (08:01)
[2024-03-16] MEDS: LORATADINE 10 MG TAB PO SCH (08:01)
[2024-03-16 12:56] VITALS: BP 103/61; PULSE 61
== END 2024-03-16 13:20 | disposition home or self-care (01) ==
LOC: PACUINP 06:06 → ASU 06:06 → 3E 13:25